=== PATIENT | male | born 1975 | race Caucasian/White ===

== ENCOUNTER → 2021-12-05 | Outpatient (CLI) | payer BC ==
[~2021-12-05] MED LIST: ATOR40TA75 PO; LOSA50TA28 PO; OMEG12003 PO; SYNT112T2 PO; TEST200I14; VITA500C24 PO; VITATAB47 PO
== END ==
LOC: M RAD 06:39
PROVIDERS: ATTEND Internal Medicine Hematology & Oncology
DX: D45 Polycythemia vera (principal); K76.0 Fatty (change of) liver, not elsewhere classified; R14.0 Abdominal distension (gaseous)